=== PATIENT | female | born 1950 | race Caucasian/White ===

== ENCOUNTER → 2017-03-23 | Outpatient (CLI) | payer BC | END | disposition home or self-care (01) | LOC: PCVCCLINIC 13:40 | PROVIDERS: ATTEND Internal Medicine Cardiovascular Disease | DX: I10 Essential (primary) hypertension (principal); R00.1 Bradycardia, unspecified; E78.00 Pure hypercholesterolemia, unspecified; M19.90 Unspecified osteoarthritis, unspecified site; E03.9 Hypothyroidism, unspecified; Z90.710 Acquired absence of both cervix and uterus; Z87.891 Personal history of nicotine dependence | CPT/HCPCS: 93005; G0463 ==

== ENCOUNTER → 2017-04-06 | Outpatient (CLI) | payer BC ==
--- NOTE | 2017-04-06 16:41 | PCVCIMAG ---
APPROVED REPORT Patient Location: Echo lab [facility] STRESS TEST Room #: INDICATIONS: BRADYCARDIA, HYPERTENSION, HYPERCHOLESTEROLEMIA, PALPITATIONS THE PATIENT EXERCISED ACCORDING TO THE THERESE PROTOCOL FOR 12:00 MINUTES, ACHIEVING A WORK LEVEL OF 13.7 METS. THE RESTING HEART RATE OF 49 BPM JORY TO A MAXIMAL HEART RATE OF 139 BPM. THIS VALUE REPRESENTS 91% OF THE MAXIMAL, AGE-PREDICTED HEART RATE. THE RESTING BLOOD PRESSURE OF 130/72 MMHG, JORY TO A MAXIMUM BLOOD PRESSURE OF 180/84MMHG. THE EXERCISE TEST WAS STOPPED DUE TO FATIGUE AND DYSPNEA. ECG: The resting ECG reveals sinus bradycardia. With exercise, there were PVCs but no ST segment abnormalities. Conclusion 1. Clinical response, nonischemic. 2. Stress ECG response, nonischemic. 3. Arrhythmias, PVCs with exercise. 4. Chronotropic competence, normal.
== END | disposition home or self-care (01) ==
LOC: PCVCIMAG 10:55
PROVIDERS: ATTEND Internal Medicine Cardiovascular Disease
DX: I49.3 Ventricular premature depolarization (principal); I10 Essential (primary) hypertension; E78.5 Hyperlipidemia, unspecified; E78.00 Pure hypercholesterolemia, unspecified; M19.90 Unspecified osteoarthritis, unspecified site; E03.9 Hypothyroidism, unspecified; Z87.891 Personal history of nicotine dependence
CPT/HCPCS: 93017

== ENCOUNTER → 2017-04-14 | Outpatient (CLI) | payer BC | END | disposition home or self-care (01) | LOC: PCVCCLINIC 11:52 | PROVIDERS: ATTEND Internal Medicine Cardiovascular Disease | DX: I10 Essential (primary) hypertension (principal); G35 Multiple sclerosis; E78.00 Pure hypercholesterolemia, unspecified; M19.90 Unspecified osteoarthritis, unspecified site; E03.9 Hypothyroidism, unspecified; E78.5 Hyperlipidemia, unspecified; Z79.899 Other long term (current) drug therapy; Z90.710 Acquired absence of both cervix and uterus; Z87.891 Personal history of nicotine dependence | CPT/HCPCS: G0463 ==